=== PATIENT | male | born 1970 | race African-American/Black ===

== ENCOUNTER 2019-10-07 08:05 | Day surgery (SDC) | payer OTHER ==
[2019-10-07] MEDS ORDERED: Ringers Lactate 1,000 ML IV ONE (08:27)
[2019-10-07] MEDS ORDERED: CEFOXITIN/SWI 1gm 1 GM/10 ML SYR ONE (08:28)
[2019-10-07] MEDS ORDERED: PROPOFOL 200 MG/20 ML VIAL IV ONE (09:20)
[2019-10-07] MEDS ORDERED: FENTANYL CITR 100 MCG/2 ML ONE (09:20)
[2019-10-07] MEDS ORDERED: MIDAZOLAM HCL 2 MG/2 ML INJ ONE (09:21)
[2019-10-07] MEDS ORDERED: LIDOCAINE 1% MPF 5 ML VIAL ONE (09:21)
[2019-10-07] MEDS: BUPIVACA 0.5%/EPI 0.0005%/PF 30 ML VIAL ONE ×2 (11:02→12:18)
[2019-10-07] MEDS ORDERED: KETOROLAC 30 MG/ML INJ ONE (12:24)
[2019-10-07] MEDS ORDERED: ONDANSETRON 4 MG/2 ML VIAL ONE (12:26)
--- NOTE | 2019-10-07 12:37 | P.OP ---
Preoperative diagnosis: Posterior Neck Lipoma Postoperative diagnosis: Posterior Neck Lipoma Primary procedure: Excision of Posterior Neck Lipoma Anesthesia: GETA + Local Estimated blood loss: <2cc Specimen: Lipoma Findings: 8cm x 7cm lipoma Complications: None Transferred to: Recovery Room Condition: Good
[2019-10-07 13:48] VITALS: TEMP 97.6
[2019-10-07 14:25] VITALS: BP 138/94; O2SAT 97
--- NOTE | 2019-10-07 23:35 | OP ---
Date of Procedure: 10/07/2019 Surgeon: Eliazar Reed MD, Postoperative Diagnosis: Posterior neck lipoma. Postoperative Diagnosis: Posterior neck lipoma. Procedure Performed: Excision of posterior neck lipoma. Anesthesia: General endotracheal plus local with 0.5% Marcaine with epinephrine. Estimated Blood Loss: Less than 2 mL. Specimen: Lipoma. Findings: An 8 cm x 7 cm lipoma extending to the fascia overlying the muscle, but not invading muscl e. Complications: None. Disposition: Transferred to the recovery room in good condition. Procedure In Detail: After informed consent was obtained, patient was brought to the operating room, prepped and draped in the usual sterile fashion after adequate anesthesia was achieved, a linear inc ision was made overlying the upper neck area. This was made for approximately 8 cm in a transverse d irection. After appropriately anesthetizing the skin, electrocautery was used to dissect down throug h subcutaneous tissues and expose a lipomatous mass, which was encountered. This was approximately 8 cm x 7 cm. This was circumferentially dissected using electrocautery, extended all the way down to the muscle fascial plane, but did not violate the muscle plane and was only loosely attached to the f ascia and easily removable. After the mass was removed, marking sutures were placed and the specimen was sent off for pathologic examination. The area was copiously irrigated and hemostasis was easily achieved with electrocautery. Deep dermal layer was then closed with a 3-0 Vicryl in a running fash ion and the skin was closed with a 4-0 Monocryl in a running fashion. Dermabond was placed over top. The patient tolerated the procedure well without evidence of complication and was transferred to [facility] PACU in good condition. All counts were correct at the end of the case. LUZMA/MODL Voice ID: [id number] Report ID: [id number]
== END 2019-10-07 14:21 | disposition home or self-care (01) ==
LOC: OR 08:05
PROVIDERS: ATTEND Surgery
PROC: 0JB40ZZ Excision of Right Neck Subcutaneous Tissue and Fascia, Open Approach (ICD-10-PCS; principal; 2019-10-07 11:45)
DX: D17.0 Benign lipomatous neoplasm of skin and subcutaneous tissue of head, face and neck (principal)
CPT/HCPCS: 88304; 11426; J2704; J2250; J3010; J7120; J2405

== ENCOUNTER 2020-11-27 03:09 | Observation (INO) | payer OTHER ==
[2020-11-27 03:47] LABS: Absolute Lymphocytes (CBC) 1.8 K/uL (0.7-4.9); Basophils % 0.3 % (0-1.3); Hematocrit 39.2 % (39.6-49.0); Lymphocytes % 32.7 % (15.3-44.8); MPV 8.8 fL (7.6-11.3); RBC Red Blood Cell Count 4.72 M/uL (4.33-5.43)
[2020-11-27] MEDS ORDERED: MORPHINE 4 MG/ML SYR ONE ×2 (03:52→04:55)
[2020-11-27] MEDS ORDERED: ONDANSETRON 4 MG/2 ML VIAL ONE (03:52)
[2020-11-27 04:07] LABS: ALT/SGPT 24 U/L (12-78); AST/SGOT 21 U/L (15-37); Albumin 3.4 g/dL (3.4-5.0); Alkaline Phosphatase 68 U/L (45-117); BUN Blood Urea Nitrogen 13 mg/dL (7-18); Bicarbonate 26 mmol/L (21-32); Bilirubin Direct < 0.1 mg/dL (0-0.2); Bilirubin Total 0.8 mg/dL (0.2-1.0); Glucose Level 101 mg/dL (74-106); NT PRO-BNP 16 pg/mL (<125); Potassium 3.6 mmol/L (3.5-5.1); Protein, Total 7.2 g/dL (6.4-8.2); Sodium Level 139 mmol/L (136-145); Troponin (Emerg Dept Use Only) < 0.02 ng/mL (0.0-0.045)
--- NOTE | 2020-11-27 05:26 | P.HP ---
Certification for Inpatient Patient admitted to: Observation With expected LOS: <2 Midnights Patient will require the following post-hospital care: None Practitioner: I am a practitioner with admitting privileges, knowledge of patient current condition, hospital course, and medical plan of care. Services: Services provided to patient in accordance with Admission requirements found in Title 42 Section 412.3 of the Code of Federal Regulations <Viet Lott - Last Filed: 11/27/20 05:24> Patient History Date of Service: 11/27/20 Primary Care Provider: Dr. Coronado Reason for admission: Chest pain History of Present Illness: 50-year-old male with history of hypertension presented to the emergency department for chest pain. Patient reports that pain began yesterday at 9:00 a.m. while he was driving. Pain is substernal, radiates to back described as sharp. Made worse with deep breathing, patient does report some associated shortness of breath but this could be related to increased pain. Patient was evaluated in the emergency department with CT dissection protocol and cardiac workup. Labs unremarkable, EKG without acute changes. Chest x-ray unremarkable. Patient reportedly takes an unknown blood pressure medication intermittently and was hypertensive in the emergency department with blood pressures around 150/110. Patient was seen at [facility] yesterday and discharged for similar complaint but reports that pain came back and he grew concerned. ED provider wishes to admit patient for further evaluation and management. - Past Medical/Surgical History -: Hypertension -: Cyst removal on neck Psychosocial/ Personal History: Patient is currently unemployed and lives with his . - Family History Family History: Reviewed- Non-Contributory - Social History Smoking Status: Never smoker Alcohol use: Yes CD- Drugs: No Caffeine use: Yes Place of Residence: Home <OrenViet - Last Filed: 11/27/20 05:24> Date of Service: 11/27/20 <Phuc Sherman - Last Filed: 11/27/20 21:59> Allergies No Known Allergies Allergy (Verified 10/07/19 08:03) Home Medications: Furosemide [Lasix] 20 mg PO DAILY 30 Days #30 tablet 11/27/20 Losartan Potassium 50 mg PO DAILY 30 Days #30 tablet 11/27/20 carvediloL [Coreg] 3.125 mg PO BID 30 Days #60 tab 11/27/20 Review of Systems 10-point ROS is otherwise unremarkable Respiratory: Shortness of Breath, Pleuritic Pain Cardiovascular: Chest Pain <Viet Lott - Last Filed: 11/27/20 05:24> Physical Examination - Physical Exam General: Alert, In no apparent distress HEENT: Atraumatic, PERRLA, Mucous membr. moist/pink, EOMI, Sclerae nonicteric Neck: Supple, 2+ carotid pulse no bruit, No LAD, Without JVD or thyroid abnormality Respiratory: Clear to auscultation bilaterally, Normal air movement Cardiovascular: Regular rate/rhythm, Normal S1 S2 Gastrointestinal: Normal bowel sounds, No tenderness Musculoskeletal: No tenderness Integumentary: No rashes Neurological: Normal gait, Normal speech, Normal strength at 5/5 x4 extr, Normal tone, Normal affect Lymphatics: No axilla or inguinal lymphadenopathy - Studies Laboratory Data (last 24 hrs) 11/27/20 03:20: WBC 5.6, Hgb 13.0 L, Hct 39.2 L, Plt Count 208 11/27/20 03:20: Sodium 139, Potassium 3.6, BUN 13, Creatinine 1.00, Glucose 101, Total Bilirubin 0.8, AST 21, ALT 24, Alkaline Phosphatase 68 <Viet Lott - Last Filed: 11/27/20 05:24> - Studies Laboratory Data (last 24 hrs) 11/27/20 03:20: WBC 5.6, Hgb 13.0 L, Hct 39.2 L, Plt Count 208 11/27/20 03:20: Sodium 139, Potassium 3.6, BUN 13, Creatinine 1.00, Glucose 101, Total Bilirubin 0.8, AST 21, ALT 24, Alkaline Phosphatase 68 11/27/20 03:13: WBC Cancelled, Hgb Cancelled, Hct Cancelled, Plt Count Cancelled 11/27/20 03:13: Sodium Cancelled, Potassium Cancelled, BUN Cancelled, Creatinine Cancelled, Glucose Cancelled, Total Bilirubin Cancelled, AST Cancelled, ALT Cancelled, Alkaline Phosphatase Cancelled <Phuc Sherman - Last Filed: 11/27/20 21:59> Assessment and Plan - Plan Assessment Chest pain rule out ACS Hypertension Plan Chest pain rule out ACS: Trend troponins, CT dissection protocol negative for acute findings. Cardiology consult in place. Continue with aspirin, statin. Obtain lipid panel with next troponin. Hypertension: Obtain and continue home medications, adjust as necessary. Discharge Plan: Home Plan to discharge in: 24 Hours - Advance Directives Does patient have a Living Will: No Does patient have a Durable POA for Healthcare: No - Code Status/Comfort Care Code Status Assessed: Yes (Full code) Critical Care: No Time Spent Managing Pts Care (In Minutes): 55 <Viet Lott - Last Filed: 11/27/20 05:24> - Plan Plan of care reviewed and I agree with plan as noted above by Viet Lott. Trend troponin. Cardiology consulted. Pt reports family member had heart attack as teenager. <Phuc Sherman - Last Filed: 11/27/20 21:59>
--- NOTE | 2020-11-27 05:28 | ER ---
Nurse's Notes [facility] Name: Laci Dow Age: 50 yrs Sex: Male : 1970 Arrival Date: 11/27/2020 Time: 03:12 Bed 6 Private MD: Diagnosis: Chest pain, unspecified Presentation: 11/27 03:05 Chief complaint: EMS states: Pt reports having chest pain since yesterday that he was jb4 seen at [facility]. Since then it has been progressively getting worse. Initial blood pressure was 200/120. Current blood pressure is 155/90. Heart rate has stayed between 90-100. He took 162 oh his own aspirin, we gave another 162 for a total of 324. He was given 1 sublingual nitro tablet which brought his pain from a 10 to a 3. 03:05 Coronavirus screen: Client denies travel out of the [place] in the last 14 days. At this 4 time, the client does not indicate any symptoms associated with coronavirus-19. The client reports previous COVID testing was negative. Date of collection: November 26, 2020. Ebola Screen: Patient negative for fever greater than or equal to 101.5 degrees Fahrenheit, and additional compatible Ebola Virus Disease symptoms No symptoms or risks identified at this time. Initial Sepsis Screen: Does the patient meet any 2 criteria? HR > 90 bpm. Yes Does the patient have a suspected source of infection? No. Patient's initial sepsis screen is negative. Risk Assessment: Do you want to hurt yourself or someone else? Patient reports no desire to harm self or others. Onset of symptoms was November 26, 2020. Care prior to arrival: Medication(s) given: ASA, 81 mg, x 2, Nitroglycerin, 0.4 mg SL x 1, IV initiated. 20 GA, in the left antecubital area. Transition of care: patient was not received from another setting of care. 03:05 Method Of Arrival: EMS: [facility] jb4 03:05 Acuity: FARRAH 2 jb4 Historical: - Allergies: 03:05 No Known Allergies; jb4 - Home Meds: 03:05 Lisinopril Oral [Active]; aspirin 81 mg Oral chew [Active]; jb4 - PMHx: 03:05 Hypertension; jb4 - Immunization history:: Adult Immunizations up to date. - Social history:: Smoking status: Patient denies any tobacco usage or history of. Patient/guardian denies using alcohol, street drugs. - Family history:: not pertinent. - Hospitalizations: : No recent hospitalization is reported. Screenin:05 Abuse screen: Denies threats or abuse. Nutritional screening: No deficits noted. jb4 Tuberculosis screening: No symptoms or risk factors identified. Fall Risk None identified. Assessment: 03:05 General: Appears in no apparent distress. comfortable, Behavior is calm, cooperative, jb4 appropriate for age. Pain: Complains of pain in mid-sternal area Pain radiates to back Pain currently is 3 out of 10 on a pain scale. at worst was 10 out of 10 on a pain scale. Quality of pain is described as stabbing, tight Pain began 1 day ago. Is continuous. Neuro: Level of Consciousness is awake, alert, obeys commands, Oriented to person, place, time, situation. Cardiovascular: Heart tones S1 S2 present Patient's skin is warm and dry. Pulses are 3+ in right radial artery and left radial artery. Respiratory: Airway is compromised Respiratory effort is even, unlabored, Respiratory pattern is regular, symmetrical, Breath sounds are clear bilaterally. GI: No signs and/or symptoms were reported involving the gastrointestinal system. : No signs and/or symptoms were reported regarding the genitourinary system. EENT: No signs and/or symptoms were reported regarding the EENT system. Derm: Skin is intact, Skin is pink, warm \T\ dry. Musculoskeletal: Circulation, motion, and sensation intact. Range of motion: intact in all extremities. 04:04 Reassessment: Patient appears in no apparent distress at this time. Patient and/or jb4 family updated on plan of care and expected duration. Pain level reassessed. PT is resting in bed with eyes closed, respirations even and unlabored, no s/s of pain or distress noted. Patient states symptoms have improved. 04:30 Reassessment: Pt back from CT reports sudden onset worsening of chest pain, provider luis notified, see MAR for orders. 05:00 Reassessment: Patient appears in no apparent distress at this time. Patient and/or jb4 family updated on plan of care and expected duration. Pain level reassessed. Patient is alert, oriented x 3, equal unlabored respirations, skin warm/dry/pink. Patient states feeling better. 06:00 Reassessment: Patient appears in no apparent distress at this time. Patient and/or jb4 family updated on plan of care and expected duration. Pain level reassessed. Patient is alert, oriented x 3, equal unlabored respirations, skin warm/dry/pink. Vital Signs: 03:05 BP 143 / 103; Pulse 99; Resp 16; Temp 98.2; Pulse Ox 98% on R/A; Weight 115.67 kg (R); jb4 Height 5 ft. 7 in. (170.18 cm) (R); Pain 3/10; 04:00 BP 140 / 102; Pulse 86; Resp 15; Pulse Ox 100% on R/A; Pain 0/10; jb4 05:00 BP 145 / 102; Pulse 88; Resp 13; Pulse Ox 94% on R/A; jb4 05:45 BP 138 / 96; Pulse 81; Resp 15; Pulse Ox 96% on R/A; Pain 1/10; jb4 03:05 Body Mass Index 39.94 (115.67 kg, 170.18 cm) jb4 ED Course: 03:05 Arm band placed on left wrist. EKG completed in triage. Results shown to MD. EKG jb4 completed in triage. Results shown to MD. 03:05 Patient has correct armband on for positive identification. Bed in low position. Call jb4 light in reach. Side rails up X 1. monitor car operator on. Pulse ox on. NIBP on. 03:12 Patient arrived in ED. rn 03:15 Truong Roger, RN is Primary Nurse. jb4 03:20 Andreas Sherman MD is Attending Physician. rn 03:20 Initial lab(s) drawn, by ED staff, sent to lab. Maintain EMS IV. Dressing intact. Good jb4 blood return noted. Site clean \T\ dry. Gauge \T\ site: 20g LAC. IV is patent, is intact, with fluids infusing freely, with good blood return, Flushed left antecubital Converted IV to saline lock on left antecubital area. 03:21 Triage completed. jb4 03:36 Chest Single View In Process Unspecified. EDMS 04:36 Angio Aorta For Dissection In Process Unspecified. EDMS 04:39 EKG done, by ED staff, reviewed by Andreas Sherman MD. jb4 05:27 Phuc Sherman MD is Hospitalizing Provider. rn 06:00 No provider procedures requiring assistance completed. Patient admitted, IV remains in jb4 place. Administered Medications: 03:44 Drug: Zofran (Ondansetron) 4 mg Route: IVP; Site: left antecubital; jb4 04:10 Follow up: Response: No adverse reaction jb4 03:46 Drug: morphine 4 mg Route: IVP; Site: left antecubital; jb4 04:10 Follow up: Response: No adverse reaction; Pain is decreased; RASS: Alert and Calm (0) jb4 04:44 Drug: morphine 4 mg Route: IVP; Site: left antecubital; jb4 05:00 Follow up: Response: No adverse reaction; Pain is decreased; RASS: Alert and Calm (0) jb4 05:26 Not Given (administered by EMS): Aspirin Chewable Tablet 324 mg PO once; 81 mg tablets jb4 x 4 05:34 Drug: Metoprolol TARTRATE (Lopressor) 50 mg Route: PO; jb4 06:17 Follow up: Response: No adverse reaction jb4 Outcome: 05:28 Decision to Hospitalize by Provider. rn 06:00 Admitted to Med/surg accompanied by nurse, via stretcher, room 211, with chart, Report jb4 called to RADHIKA Juarez 06:00 Condition: stable 06:00 Discharge instructions given to patient, family, Instructed on the need for admit, Demonstrated understanding of instructions. 06:17 Patient left the ED. jb4 Signatures: Dispatcher [employer] EDMS Andreas Sherman MD MD rn Bryson, James, RN RN jb4 Corrections: (The following items were deleted from the chart) 03:21 03:05 Chief complaint: EMS states: Pt reports having chest pain since yesterday that he luis was seen at [facility] for. Since then it has been progressively getting worse. Initial blood pressure was 200/120. Current blood pressure is 155/90. Heart rate has stayed between 90-100. He took 182 oh his own aspirin, we gave another 182 for a total of 324. He was given 1 sublingual nitro tablet which brought his pain from a 10 to a 3. jb4 03:21 03:05 Care prior to arrival: Medication(s) given: ASA, 81 mg, x 2, IV initiated. 20 GA, jb4 in the left antecubital area, jb4 05:28 03:05 Chief complaint: EMS states: Pt reports having chest pain since yesterday that he luis was seen at [facility] for. Since then it has been progressively getting worse. Initial blood pressure was 200/120. Current blood pressure is 155/90. Heart rate has stayed between 90-100. He took 182 oh his own aspirin, we gave another 182 for a total of 324. He was given 1 sublingual nitro tablet which brought his pain from a 10 to a 3. jb4 06:17 06:00 Response: No adverse reaction; Pain is decreased; RASS: Alert and Calm (0) jb4 jb4
--- NOTE | 2020-11-27 05:28 | EDPHYS ---
Physician Documentation [facility] Name: Laci Dow Age: 50 yrs Sex: Male : 1970 Arrival Date: 11/27/2020 Time: 03:12 Bed 6 Private MD: ED Physician Andreas Sherman HPI: 11/27 03:15 This 50 yrs old Black Male presents to ER via Unassigned with complaints of chest pain. rn 03:15 The patient or guardian reports chest pain that is located primarily in the substernal rn area. Onset: just prior to arrival. The pain radiates to Associated signs and symptoms: Pertinent positives: None. Pertinent negatives: abdominal pain, cough, diaphoresis, headache, near syncope, palpitations, shortness of breath, syncope, vomiting. The chest pain is described as a heaviness. Duration: The patient or guardian reports a single episode, that is still ongoing. Modifying factors: The symptoms are alleviated by NTG, X1. the symptoms are aggravated by nothing. Severity of pain: At its worst the pain was moderate in the emergency department the pain has improved. EMS care prior to arrival includes: nitroglycerin, x 1, with partial relief of the chest pain. The patient has experienced a previous episode. The patient has been recently seen by a physician:. Reports chest pain began yesterday, seen at [place], reports given medication and went away, sent home. Went to bed fine and woken up with chest pain, heaviness, center of chest and some back pain, EMS reports pain from 10/10 to 3/10 after single nitroglycerin. . Historical: - Allergies: 03:05 No Known Allergies; jb4 - Home Meds: 03:05 Lisinopril Oral [Active]; aspirin 81 mg Oral chew [Active]; jb4 - PMHx: 03:05 Hypertension; jb4 - Immunization history:: Adult Immunizations up to date. - Social history:: Smoking status: Patient denies any tobacco usage or history of. Patient/guardian denies using alcohol, street drugs. - Family history:: not pertinent. - Hospitalizations: : No recent hospitalization is reported. ROS: 03:20 Constitutional: Negative for fever, chills, and weight loss, Eyes: Negative for injury, rn pain, redness, and discharge, Neck: Negative for injury, pain, and swelling, Cardiovascular: Negative for palpitations, and edema, Respiratory: Negative for shortness of breath, cough, wheezing, and pleuritic chest pain, Abdomen/GI: Negative for abdominal pain, nausea, vomiting, diarrhea, and constipation, Back: Negative for injury MS/Extremity: Negative for injury and deformity, Skin: Negative for injury, rash, and discoloration, Neuro: Negative for headache, weakness, numbness, tingling, and seizure. Exam: 03:20 Constitutional: This is a well developed, well nourished patient who is awake, alert, rn and in no acute distress. Head/Face: Normocephalic, atraumatic. Cardiovascular: Regular rate and rhythm. No pulse deficits. Respiratory: No increased work of breathing, no retractions or nasal flaring. Abdomen/GI: Soft, non-tender Skin: Warm, dry MS/ Extremity: Pulses equal, no cyanosis. Neurovascular intact. Full, normal range of motion. Equal circumference. Neuro: Awake and alert, GCS 15, oriented to person, place, time, and situation. Motor strength 5/5 in all extremities. Sensory grossly intact. Cerebellar exam normal. Vital Signs: 03:05 BP 143 / 103; Pulse 99; Resp 16; Temp 98.2; Pulse Ox 98% on R/A; Weight 115.67 kg (R); jb4 Height 5 ft. 7 in. (170.18 cm) (R); Pain 3/10; 04:00 BP 140 / 102; Pulse 86; Resp 15; Pulse Ox 100% on R/A; Pain 0/10; jb4 05:00 BP 145 / 102; Pulse 88; Resp 13; Pulse Ox 94% on R/A; jb4 05:45 BP 138 / 96; Pulse 81; Resp 15; Pulse Ox 96% on R/A; Pain 1/10; jb4 03:05 Body Mass Index 39.94 (115.67 kg, 170.18 cm) jb4 MDM: 03:20 Patient medically screened. rn 05:23 Differential diagnosis: abnormal EKG, acute myocardial infarction, acute pericarditis, rn anxiety, coronary artery disease costochondritis, esophagitis, gastroesophageal reflux disease (GERD), pleurisy, pneumonia, pneumothorax, stable angina, thoracic aortic disection, unstable angina. The patient was not given aspirin in the Emergency Department. Administered by EMS. Data reviewed: vital signs, nurses notes, lab test result(s), EKG, radiologic studies, CT scan, plain films, and as a result, I will admit patient. Counseling: I had a detailed discussion with the patient and/or guardian regarding: the historical points, exam findings, and any diagnostic results supporting the discharge/admit diagnosis, lab results, radiology results, the need for further work-up and treatment in the hospital. Response to treatment: the patient's symptoms have markedly improved after treatment, and as a result, I will admit patient. Admission orders: after a detailed discussion of the patient's condition and case, the admit orders are written by me. ED course: Pt improved is resting comfortably, CT aorta neg, trop normal, no ischemic changes on ECG, will obs for chest pain workup. Pt with appt with Dr. Medellin tomorrow, but not comfortable going home given is their 2nd time to ER for chest pain in 24 hours. Chest pain improved with Nitro. Will admit to Dr. Sherman. . 11/27 03:13 Order name: Basic Metabolic Panel rn 11/27 03:13 Order name: CBC with Diff rn 11/27 03:13 Order name: LFT's rn 11/27 03:13 Order name: NT PRO-BNP rn 11/27 03:13 Order name: Troponin (emerg Dept Use Only) rn 11/27 03:34 Order name: Basic Metabolic Panel; Complete Time: 04:14 EDMS 11/27 03:13 Order name: XRAY Chest (1 view) rn 11/27 03:14 Order name: CT Aorta for Dissection rn 11/27 03:22 Order name: Chest Single View EDMS 11/27 03:34 Order name: Liver (Hepatic) Function; Complete Time: 04:14 EDMS 11/27 03:34 Order name: Troponin (Emerg Dept Use Only); Complete Time: 04:14 EDMS 11/27 03:34 Order name: NT PRO-BNP; Complete Time: 04:14 EDMS 11/27 03:35 Order name: CBC with Automated Diff; Complete Time: 04:04 EDMS 11/27 05:38 Order name: COVID-19 la1 11/27 03:13 Order name: EKG; Complete Time: 06:32 rn 11/27 03:13 Order name: Cardiac monitoring; Complete Time: 03:21 rn 11/27 03:13 Order name: EKG - Nurse/Tech; Complete Time: 03:21 rn 11/27 03:13 Order name: IV Saline Lock; Complete Time: 03:21 rn 11/27 03:13 Order name: Labs collected and sent; Complete Time: 03:21 rn 11/27 03:13 Order name: O2 Per Protocol; Complete Time: 03:21 rn 11/27 03:13 Order name: O2 Sat Monitoring; Complete Time: 03:23 rn 11/27 03:43 Order name: Angio Aorta For Dissection EDNC 11/27 05:13 Order name: EKG - Nurse/Tech; Complete Time: 05:13 jb4 Administered Medications: 03:44 Drug: Zofran (Ondansetron) 4 mg Route: IVP; Site: left antecubital; jb4 04:10 Follow up: Response: No adverse reaction jb4 03:46 Drug: morphine 4 mg Route: IVP; Site: left antecubital; jb4 04:10 Follow up: Response: No adverse reaction; Pain is decreased; RASS: Alert and Calm (0) jb4 04:44 Drug: morphine 4 mg Route: IVP; Site: left antecubital; jb4 05:00 Follow up: Response: No adverse reaction; Pain is decreased; RASS: Alert and Calm (0) jb4 05:26 Not Given (administered by EMS): Aspirin Chewable Tablet 324 mg PO once; 81 mg tablets jb4 x 4 05:34 Drug: Metoprolol TARTRATE (Lopressor) 50 mg Route: PO; jb4 06:17 Follow up: Response: No adverse reaction jb4 Disposition: 11/27/20 05:28 Hospitalization ordered by Phuc Sherman for Observation. Preliminary diagnosis is Chest pain, unspecified. - Bed requested for Telemetry/MedSurg (observation). - Status is Observation. jb4 - Condition is Stable. - Problem is new. - Symptoms have improved. Signatures: Dispatcher [employer] EDNC Lien Vogel RN Andreas Mclean MD MD rn Attema, Lee, LATHE TURNER-C LATHE TURNER-Cla1 Truong Roger RN RN jb4 Corrections: (The following items were deleted from the chart) 05:38 05:28 Hospitalization Ordered by Phuc Sherman MD for Observation. Preliminary mw diagnosis is Chest pain, unspecified. Bed requested for Telemetry/MedSurg (observation). Status is Observation. Condition is Stable. Problem is new. Symptoms have improved. rn 06:17 05:38 11/27/2020 05:28 Hospitalization Ordered by Phuc Sherman MD for Observation. jb4 Preliminary diagnosis is Chest pain, unspecified. Bed requested for Telemetry/MedSurg (observation). Status is Observation. Condition is Stable. Problem is new. Symptoms have improved. mw
[2020-11-27] MEDS ORDERED: METOPROLOL TAR 50 MG TAB ONE (05:47)
[2020-11-27] MEDS ORDERED: MORPHINE 2 MG/ML SYR IV PRN (06:12)
[2020-11-27] MEDS ORDERED: ACETAMINOPHEN 500 MG TAB PO PRN (06:12)
[2020-11-27] MEDS ORDERED: NITROGLYCERIN 0.4 MG/TAB SL PRN (06:12)
[2020-11-27] MEDS ORDERED: ONDANSETRON 4 MG/2 ML VIAL IV PRN (06:12)
[2020-11-27] MEDS: METOPROLOL TAR 25 MG TAB PO SCH ×2 (06:12→17:55)
[2020-11-27 06:16] VITALS: BMI 41.1
[2020-11-27 06:24] VITALS: O2SAT 96
--- NOTE | 2020-11-27 06:53 | RAD REPORT ---
EXAM DESCRIPTION: Vasiliy Single View11/27/2020 3:36 am CLINICAL HISTORY: Chest pain COMPARISON: none FINDINGS: The lungs appear clear of acute infiltrate. The heart is mildly enlarged IMPRESSION: No acute abnormalities displayed
[2020-11-27] MEDS ORDERED: POTASSIUM CL SA 10 MEQ TAB PO ONE (08:00)
[2020-11-27] MEDS ORDERED: REGADENOSON 0.4 MG/5 ML SYR IV ONE (08:46)
[2020-11-27] MEDS ORDERED: ENOXAPARIN 40 MG/0.4 ML SQ SCH (09:00)
[2020-11-27 09:44] LABS: HDL Cholesterol 66 mg/dL (40-60); LDL Cholesterol, Calculated 118 (<130); Troponin I < 0.02 ng/mL (0.0-0.045)
--- NOTE | 2020-11-27 12:50 | RAD REPORT ---
EXAM DESCRIPTION: NM - Rest Stress Cardiac Imaging - 11/27/2020 12:39 pm CLINICAL HISTORY: Chest pain COMPARISON: Portable chest November 27, 2020 TECHNIQUE: The patient was administered 10.2 mCi of Tc 99m Sestamibi prior to resting SPECT imaging of the heart. The patient was then administered 30.9 mCi of Tc 99m Sestamibi following exercise or ph armacologic stress. Multiplanar SPECT images were reviewed. FINDINGS: The end diastolic volume is 150 ml, the end systolic volume is 103 ml, and the ejection fr action is 32 %. Ventricular dilatation is present. There is a large fixed defect along the inferior wall from base to apex unchanged between rest and stress imaging. In the setting of ventricular dilatation this can be scarring or diaphragm attenuation artifact. There is thinning at the apex. No stress-induced ischemi c changes confirmed. IMPRESSION: No stress-induced ischemia identifiable. Large fixed defect along the inferior wall could be scarring, attenuation artifact or a combination. Dilated end-diastolic volume of 150 mL. Poor ejection fraction calculated as 32%.
--- NOTE | 2020-11-27 14:57 | RAD REPORT ---
EXAM DESCRIPTION: CT - Angio Aorta For Dissection - 11/27/2020 6:21 am CLINICAL HISTORY: CHEST PAIN COMPARISON: None Available. TECHNIQUE: CTA of the chest, abdomen and pelvis performed following IV administration of iodinated c ontrast. 3-D/MIP reformatted images available. FINDINGS: Chest: Thyroid: No abnormalities of the visualized thyroid. Great Vessels: Great vessels have normal anatomic configuration. Thoracic Aorta: Normal caliber thoracic aorta without evidence of dissection. Pulmonary arteries: No central filling defects. Heart: No cardiomegaly, significant pericardial effusion, or coronary artery atherosclerosis Lymph Nodes: No enlarged mediastinal lymph nodes identified. Esophagus: No abnormalities of the esophagus identified Other: No additional findings. Lungs: Mild bilateral dependent atelectasis. No confluent airspace consolidation. Small apical blebs. Pleura: No pleural effusion or pneumothorax. Trachea/Airways: No abnormalities of the visualized trachea or airways. Abdomen: Liver: The liver has normal size and density. No intrahepatic mass or biliary dilatation. Gallbladder: No calcified gallstones. Spleen, Pancreas, and Adrenal Glands: The spleen, pancreas, and adrenal glands are unremarkable. Kidneys: The kidneys have normal size and contour without evidence of solid mass or hydronephrosis. Vasculature: Normal caliber abdominal aorta without evidence of dissection. In line flow in the iliac and common femoral arteries. Visceral and renal arteries are patent without evidence of stenosis o r occlusion. Stomach: The stomach and duodenum have normal course. Other: No free intraperitoneal air. No free fluid or lymphadenopathy. Pelvis: Bladder: Urinary bladder is unremarkable. Bowel: No dilated loops of large or small bowel. Scattered diverticula of the colon. Appendix: Normal appendix. Pelvis: Prostate is not enlarged. Bones: Bilateral L5 pars defects with grade 1 anterolisthesis. Mild endplate spondylosis. Bilateral h ip joint space narrowing and marginal osteophytosis. IMPRESSION: 1. No evidence of aortic dissection. 2. No acute inflammatory or obstructive process identified. This exam was performed according to our departmental dose-optimization program, which includes autom ated exposure control, adjustment of the mA and/or kV according to patient size and/or use of iterati ve reconstruction technique. Electronically signed by: Reggie Toscano 11/27/2020 5:07 AM RISK ANALYST Due to temporary technical issues with the PACS/Fluency reporting system, reports are being signed by the in house radiologists without review as a courtesy to insure prompt reporting. The interpreting radiologist is fully responsible for the content of the report.
[2020-11-27 16:17] VITALS: BP 120/75; TEMP 97.9
[2020-11-27] MEDS ORDERED: ATORVASTATIN 40 MG TAB PO SCH (21:00)
--- NOTE | 2020-11-28 06:33 | EKG ---
Test Date: 2020-11-27 Test Time: 04:34:39 Library [employer] Assistant: LUIS MEASUREMENT RESULTS: Intervals: Rate: 94 CO: 168 QRSD: 94 QT: 384 QTc: 480 [place]: P: 46 CO: 168 QRS: -6 T: 42 INTERPRETIVE STATEMENTS: Normal sinus rhythm Junctional ST depression, probably normal Prolonged QT Abnormal ECG Compared to ECG 11/27/2020 03:08:08 ST (T wave) deviation now present Prolonged QT interval now present Electronically Signed On 11-28-20 06:31:55 [employer] by Abiel Medellin
--- NOTE | 2020-11-28 06:34 | EKG ---
Test Date: 2020-11-27 Test Time: 03:08:08 Line Director: RV MEASUREMENT RESULTS: Intervals: Rate: 93 [place]: 168 QRSD: 90 QT: 382 QTc: 474 [place]: P: 66 [place]: 168 QRS: -22 T: 39 INTERPRETIVE STATEMENTS: Normal sinus rhythm Normal ECG Compared to ECG 08/27/2003 05:05:00 Sinus arrhythmia no longer present Electronically Signed On 11-28-20 06:31:58 [employer] by Abiel Medellin
--- NOTE | 2020-11-28 08:42 | ECHO ---
HEIGHT: 5 ft 7 in WEIGHT: 262 lb 6.4 oz DATE OF STUDY: 11/27/[address]: Abiel Medellin MD 2-DIMENSIONAL: YES M.MODE: YES DOPPLER: YES COLOR FLOW: YES TDS: NO PORTABLE: NO DEFINITY: NO BUBBLE STUDY: NO DIAGNOSIS: CHEST PAIN CARDIAC HISTORY: CATHERIZATION: NO SURGERY: NO PROSTHETIC VALVE: NO PACEMAKER: NO MEASUREMENTS (cm) DIASTOLIC (NORMALS) SYSTOLIC (NORMALS) IVSd 1.2 (0.6-1.2) LA Diam 3.3 (1.9-4.0) LVEF 48% LVIDd 4.8 (3.5-5.7) LVIDs 3.6 (2.0-3.5) %FS 24% LVPWd 1.2 (0.6-1.2) Ao Diam 3.4 (2.0-3.7) 2 DIMENSIONAL ASSESSMENT: RIGHT ATRIUM: NORMAL LEFT ATRIUM: NORMAL RIGHT VENTRICLE: NORMAL LEFT VENTRICLE: NORMAL TRICUSPID VALVE: NORMAL MITRAL VALVE: NORMAL PULMONIC VALVE: NORMAL AORTIC VALVE: NORMAL PERICARDIAL EFFUSION: NONE AORTIC ROOT: NORMAL LEFT VENTRICULAR WALL MOTION: PARADOXICAL SEPTUM. DOPPLER/COLOR FLOW: NORMAL COMMENTS: PARADOXICAL SEPTUM. LEFT VENTRICULAR EJECTION FRACTION 48%. MILD GLOBAL HYPOKINESIS. NO EFFUSION. NORMAL DOPPLER. TECHNOLOGIST: Jean-Paul YIN
--- NOTE | 2020-11-28 08:47 | TREADPHA ---
DX: CHEST PAIN Date of Study: 11/27/2020 Ht: 5' 7 " Wt: 262 lb 6.4 oz Consulting Physician: MELISSA MEDICATIONS: TYLENOL, ASPIRIN, LIPTIOR, LOVENOX, LOPRESSOR, NITROSTAT HISTORY: HYPERTENSION AND HYPERLIPIDEMIA. PHYSICIAL EXAMINATION: RESTING B.P.: 111/41 RESTING H.R.: 75 RESTING EKG: NORMAL PROTOCOL: LEXISCAN EXERCISE TIME: 3:30 B.P. AT PEAK STRESS: 158/80 IMPRESSION: LEXISCAN INJECTED. CARDIOLITE INJECTED. SEE NUCLEAR MEDICINE REPORT. NO CHEST PAIN. NO VENTRICULAR TACHYCARDIA. NO SUPRAVENTRICULAR TACHYCARDIA. NO PREMATURE VENTRICULAR COMPLEXES. NO ARRYTHMIAS NOTED.
[2020-11-28] MEDS ORDERED: ASPIRIN EC 81 MG TAB PO SCH (09:00)
--- NOTE | 2020-11-29 20:39 | CON ---
Date of Consultation: 11/27/2020 Reason For Consultation: Chest pain. History Of Present Illness: Mr. Dow is a 50-year-old black male with history of hypertension for w hich he takes lisinopril. He is also on aspirin. He came in with substernal chest pain that is radi ating to the back. He denied any shortness of breath, palpitation, syncope, vomiting or nausea. The pain was described as heaviness. He has had 1 episode. The symptoms were alleviated with nitroglyc naomi. He denied PND, orthopnea, pedal edema, palpitation, or syncope. He had been seen at [facility], but his symptoms improved and then returned and he came back for further evaluation and treatmen t. Past Medical History: As stated above. Allergies: NONE. Review of Systems: Negative. Social History: Negative. Family History: Positive for heart disease. Physical Examination: Vital Signs: His blood pressure was 143/103, his pulse was 99, respiratory rate was 16. He was afeb rile, O2 saturation was 98% on room air. He weighed 115 kg. HEENT: Negative. Neck: Supple without any bruit, lymphadenopathy, JVD, or thyromegaly. Chest: Clear to auscultation and percussion. Cardiac: Exam revealed a regular rhythm and rate with an S4 gallops. No murmurs or rubs. Abdomen: Benign. Extremities: Revealed no clubbing, cyanosis, or edema. Diagnostic Data: Within normal limits except for his cholesterol of 203. His troponin was negative. His BNP was 16. EKG showed normal rhythm with slightly prolonged QT. Chest x-ray was normal. CT with dissection protocol was normal. Impression And Plan: Chest pain that is concerning since it got relieved with nitroglycerin, but it lasted hours with substernal chest pain radiating to the back, but yet despite the prolonged chest pa in, he still had a normal EKG, normal x-ray, normal BNP, normal troponin. His GA has officially rule d out. I am still concerned about Mr. Dow as he does have hypertension. He has a family history o f heart disease, thus I strongly recommend an echocardiogram and a pharmacological stress test before he goes home. HARRISON/AJ Voice ID: [id number] Report ID: [id number]
== END 2020-11-27 18:24 | disposition home or self-care (01) ==
LOC: ER 03:09 → 2ND 05:55
PROVIDERS: ADMIT Hospitalist; ATTEND Hospitalist
DX: R07.9 Chest pain, unspecified (principal); I10 Essential (primary) hypertension; Z82.49 Family history of ischemic heart disease and other diseases of the circulatory system; Z20.822 Contact with and (suspected) exposure to COVID-19
CPT/HCPCS: 93005 ×2; 93017; 93306; 85025; 80048; 36415; 80061; 80076; 84443; 84484 ×3; 83880; 71275; 74175; 71045; 78452; 96375; 96374; 99285; Q9967; J1650; J2785; J2405; A9500; G0378 ×2

== ENCOUNTER 2021-08-19 19:10 | Emergency (ER) | payer OTHER ==
[2021-08-19 19:49] LABS: Absolute Lymphocytes (CBC) 2.3 K/uL (0.7-4.9); Basophils % 0.5 % (0-1.3); Hematocrit 41.9 % (39.6-49.0); Lymphocytes % 44.8 % (15.3-44.8); MPV 7.9 fL (7.6-11.3); RBC Red Blood Cell Count 4.96 M/uL (4.33-5.43)
[2021-08-19 20:09] LABS: ALT/SGPT 42 U/L (12-78); AST/SGOT 30 U/L (15-37); Alkaline Phosphatase 70 U/L (45-117); BUN Blood Urea Nitrogen 12 mg/dL (7-18); Bicarbonate 27 mmol/L (21-32); Bilirubin Direct 0.2 mg/dL (0-0.2); Bilirubin Total 0.6 mg/dL (0.2-1.0); Glucose Level 93 mg/dL (74-106); Lipase 153 U/L (73-393); Potassium 3.5 mmol/L (3.5-5.1); Protein, Total 7.9 g/dL (6.4-8.2); Sodium Level 143 mmol/L (136-145)
[2021-08-19] MEDS ORDERED: NA CHLORIDE 0.9% 1,000 ML ONE (20:10)
--- NOTE | 2021-08-19 21:11 | RAD REPORT ---
EXAM DESCRIPTION: CT - Stone Protocol - 08/19/2021 9:02 pm CLINICAL HISTORY: Flank pain. FLANK PAIN COMPARISON: No comparisons TECHNIQUE: Axial images were obtained without oral or IV contrast. Lack of contrast limits solid org an and vascular assessment. The xvyuk-rl-coys spans the entirety of the system partially obscuring uppermost abdomen and lung bases. Coronal reformatted images were obtained and reviewed. All CT scans are performed using dose optimization technique as appropriate and may include automated exposure control or mA/KV adjustment according to patient size. FINDINGS: The lower lung barger are clear. Imaged portions of the liver and spleen show no suspicious findings on non-contrast imaging. The panc reas and adrenal glands are normal. No pathologic lymphadenopathy in the abdomen or pelvis. No urinary tract stones or obstructive uropathy. No bowel obstruction, free air, free fluid or abscess. Normal appendix noted.Moderate stool is presen t throughout the colon. Chronic bilateral spondylolysis is present L5-S1. Vacuum disc degeneration with posterior disc bulge at L5-S1 is present as well. IMPRESSION: No urinary tract stones or obstructive uropathy.
[2021-08-19 21:15] LABS: Urine Blood Negative (Negative); Urine Glucose Negative (Negative); Urine Protein Negative (Negative); Urine Specific Gravity >=1.030 (1.005-1.030)
[2021-08-19 21:45] LABS: Urine Bacteria <20 /HPF (NONE SEEN); Urine Mucus HEAVY /HPF (NONE SEEN); Urine RBC NONE SEEN /HPF (NONE SEEN)
--- NOTE | 2021-08-19 21:55 | ER ---
Nurse's Notes [facility] Name: Laci Dow Age: 51 yrs Sex: Male : 1970 Arrival Date: 08/19/2021 Time: 19:12 Bed 9 Private MD: Greg Coronado E Diagnosis: Low back pain Presentation: 08/19 19:22 Chief complaint: Patient states: PT states he has had right flank and right upper and wg lower abd pain for the past 4 days. Pt states he thought it was his appendix but states today he thinks it might be kidney stones. Pt states he hasn't been seen for this nor diagnosed. Pt denies SPB, CP, N/V/D. Coronavirus screen: Vaccine status: Patient reports receiving the 2nd dose of the covid vaccine. Date April 2021 Client denies travel out of the [place] in the last 14 days. At this time, the client does not indicate any symptoms associated with coronavirus-19. Ebola Screen: Patient negative for fever greater than or equal to 101.5 degrees Fahrenheit, and additional compatible Ebola Virus Disease symptoms Patient denies exposure to infectious person. Patient denies travel to an Ebola-affected area in the 21 days before illness onset. No symptoms or risks identified at this time. Initial Sepsis Screen: Does the patient meet any 2 criteria? No. Patient's initial sepsis screen is negative. Does the patient have a suspected source of infection? No. Patient's initial sepsis screen is negative. Risk Assessment: Do you want to hurt yourself or someone else? Patient reports no desire to harm self or others. Onset of symptoms was August 15, 2021. 19:22 Method Of Arrival: Ambulatory 19:22 Acuity: FARRAH 3 Triage Assessment: 19:26 General: Appears in no apparent distress. obese, well groomed, Behavior is calm, wg cooperative, appropriate for age. Pain: Complains of pain in Right flank and Right upper and lower abdomen Pain currently is 8 out of 10 on a pain scale. Quality of pain is described as aching. Historical: - Allergies: 19:25 No Known Allergies; wg - Home Meds: 19:25 None [Active]; wg - PMHx: 19:25 None; wg - Immunization history:: Adult Immunizations up to date. - Social history:: Smoking status: Patient denies any tobacco usage or history of. Screenin:40 Abuse screen: Denies threats or abuse. Denies injuries from another. Nutritional sj1 screening: No deficits noted. Tuberculosis screening: No symptoms or risk factors identified. Fall Risk None identified. Assessment: 19:39 General: Appears in no apparent distress. Behavior is calm, cooperative, appropriate sj1 for age. Pain: Complains of pain in rt flank. Neuro: No deficits noted. Cardiovascular: No deficits noted. Respiratory: No deficits noted. GI: No deficits noted. : No deficits noted. EENT: No deficits noted. Derm: No deficits noted. Musculoskeletal: No deficits noted. Vital Signs: 19:22 BP 153 / 92; Pulse 66; Resp 18; Temp 98.8; Pulse Ox 99% on R/A; Weight 116.57 kg; wg Height 5 ft. 7 in. (170.18 cm); Pain 8/10; 22:16 BP 164 / 100; Pulse 67; Resp 16; Temp 98.8; Pulse Ox 99% on R/A; Pain 2/10; sj1 19:22 Body Mass Index 40.25 (116.57 kg, 170.18 cm) ED Course: 19:12 Patient arrived in ED. am2 19:12 Greg Coronado MD is Private Physician. am2 19:25 Triage completed. 19:26 Arm band placed on left wrist. 19:27 Ancelmo Kelly PA is PHCP. cp 19:27 Ning Wright MD is Attending Physician. cp 19:28 Attending Physician role handed off by Ning Wright MD [facility] 19:28 Ancelmo Lee MD is Attending Physician. [facility] 19:39 No provider procedures requiring assistance completed. Inserted saline lock: 18 gauge sj1 in right antecubital area, using aseptic technique. Blood collected. 19:40 Patient has correct armband on for positive identification. Bed in low position. Call sj1 light in reach. Side rails up X 1. 20:04 Ning Wright MD is Attending Physician. cp 20:56 CT Stone Protocol Sent. sj1 21:02 CT Stone Protocol In Process Unspecified. EDMS 21:54 Greg Coronado MD is Referral Physician. cp 22:16 IV discontinued, intact, bleeding controlled, No redness/swelling at site. sj1 Administered Medications: 19:48 Drug: NS 0.9% 1000 ml Route: IV; Rate: 1 bolus; Site: right antecubital; sj1 21:02 Follow up: IV Status: Completed infusion; IV Intake: 1000ml sj1 Intake: 21:02 IV: 1000ml; Total: 1000ml. sj1 Outcome: 21:54 Discharge ordered by . cp 22:16 Discharged to home sj1 22:16 Condition: stable 22:16 Discharge instructions given to patient, Instructed on discharge instructions, follow up and referral plans. medication usage, Demonstrated understanding of instructions, follow-up care, medications. 22:17 Patient left the ED. sj1 Signatures: Dispatcher [employer] EDMS Ancelmo Lee MD MD cha Page, Corey, PA Teresa Peralta cp, Liam, Tracy Roberto RN RN sj1
--- NOTE | 2021-08-19 21:55 | EDPHYS ---
Physician Documentation [facility] Name: Laci Dow Age: 51 yrs Sex: Male : 1970 Arrival Date: 08/19/2021 Time: 19:12 Bed 9 Private MD: Greg Coronado E ED Physician Ning Wright HPI: 08/19 19:35 This 51 yrs old Black Male presents to ER via Ambulatory with complaints of Flank Pain. cp 19:35 The patient complains of pain in the right flank. The pain does not radiate. Onset: The cp symptoms/episode began/occurred 1 week(s) ago. Modifying factors: The symptoms are alleviated by remaining still, the symptoms are aggravated by movement. Associated signs and symptoms: Pertinent negatives: diarrhea, dysuria, fever, urinary frequency, hematuria, pain radiating to the lower extremities, vomiting. Severity of pain: in the emergency department the pain is a 0 / 10. Historical: - Allergies: 19:25 No Known Allergies; wg - Home Meds: 19:25 None [Active]; wg - PMHx: 19:25 None; wg - Immunization history:: Adult Immunizations up to date. - Social history:: Smoking status: Patient denies any tobacco usage or history of. ROS: 19:40 Back: Positive for flank pain, on the right, Negative for injury or acute deformity, cp decreased range of motion. 19:40 Eyes: Negative for injury, pain, redness, and discharge. cp 19:40 Constitutional: Negative for body aches, chills, fever, poor PO intake. 19:40 Neck: Negative for pain with movement, pain at rest, stiffness. 19:40 Cardiovascular: Negative for chest pain, edema, palpitations. 19:40 Respiratory: Negative for cough, shortness of breath, wheezing. 19:40 Abdomen/GI: Negative for abdominal pain, vomiting, diarrhea, constipation, anorexia. 19:40 : Negative for urinary symptoms, testicular pain 19:40 Skin: Negative for rash. 19:40 Neuro: Negative for numbness, tingling, weakness. 19:40 All other systems are negative. Exam: 19:45 Constitutional: The patient appears in no acute distress, alert, awake, cp non-diaphoretic, non-toxic, well developed, well nourished, obese. 19:45 Head/Face: Normocephalic, atraumatic. cp 19:45 Eyes: Periorbital structures: appear normal, Conjunctiva: normal, no exudate, no injection, Sclera: no appreciated abnormality, Lids and lashes: appear normal, bilaterally. 19:45 ENT: External ear(s): are unremarkable, Nose: is normal, Posterior pharynx: Airway: no evidence of obstruction, patent. 19:45 Neck: ROM/movement: is normal, is supple, without pain, no range of motions limitations. 19:45 Chest/axilla: Inspection: normal. 19:45 Cardiovascular: Rate: normal, Rhythm: regular, Edema: is not appreciated, JVD: is not appreciated. 19:45 Respiratory: the patient does not display signs of respiratory distress, Respirations: normal, no use of accessory muscles, no retractions, labored breathing, is not present. 19:45 Abdomen/GI: Inspection: abdomen appears normal, Bowel sounds: active, all quadrants, Palpation: soft, in all quadrants, mild abdominal tenderness, in the anterior aspect of right lateral abdomen and posterior aspect of right lateral abdomen, rebound tenderness, is not appreciated, involuntary guarding, is not appreciated. 19:45 Back: pain, is absent. 19:45 Skin: cellulitis, is not appreciated, no rash present. Vital Signs: 19:22 BP 153 / 92; Pulse 66; Resp 18; Temp 98.8; Pulse Ox 99% on R/A; Weight 116.57 kg; wg Height 5 ft. 7 in. (170.18 cm); Pain 8/10; 22:16 BP 164 / 100; Pulse 67; Resp 16; Temp 98.8; Pulse Ox 99% on R/A; Pain 2/10; sj1 19:22 Body Mass Index 40.25 (116.57 kg, 170.18 cm) wg MDM: 19:28 Patient medically screened. cp 20:00 Differential diagnosis: nephrolithiasis, pyelonephritis, UTI, diverticulitis, cp pancreatitis. 21:53 Data reviewed: vital signs, nurses notes, lab test result(s), radiologic studies, CT cp scan, and as a result, I will discharge patient. 21:53 Counseling: I had a detailed discussion with the patient and/or guardian regarding: the cp historical points, exam findings, and any diagnostic results supporting the discharge/admit diagnosis, lab results, radiology results, to return to the emergency department if symptoms worsen or persist or if there are any questions or concerns that arise at home. Special discussion: Based on the patient's Hx, exam, and Dx evaluation, there is no indication for emergent surgery or inpatient Tx. It is understood by the patient/guardian that if the Sx's persist or worsen they need to return immediately for re-evaluation. 08/19 19:27 Order name: Basic Metabolic Panel; Complete Time: 20:40 08/19 20:40 Interpretation: Normal except: CL 109. 08/19 19:27 Order name: CBC with Diff; Complete Time: 20:09 08/19 20:09 Interpretation: Normal except: BRANDON% 41.1. 08/19 19: Order name: Hepatic Function; Complete Time: 20:40 08/19 20:40 Interpretation: Normal except: A/G 1.0; GLOB 3.9. 08/19 19:27 Order name: Lipase; Complete Time: 20:40 08/19 20:40 Interpretation: Within normal limits: LIP 153. 08/19 19:28 Order name: Urine Microscopic Only; Complete Time: 21:52 08/19 21:15 Order name: Urine Dipstick-Ancillary; Complete Time: 21:20 EDMS 08/19 21:21 Interpretation: Reviewed. 08/19 19:27 Order name: IV Saline Lock; Complete Time: 19:37 08/19 19:27 Order name: Labs collected and sent; Complete Time: 19:37 08/19 19:27 Order name: Urine Dipstick-Ancillary (obtain specimen); Complete Time: 21:18 08/19 20:10 Order name: CT Stone Protocol; Complete Time: 21:20 cp Administered Medications: 19:48 Drug: NS 0.9% 1000 ml Route: IV; Rate: 1 bolus; Site: right antecubital; sj1 21:02 Follow up: IV Status: Completed infusion; IV Intake: 1000ml [facility] Disposition Summary: 08/19/21 21:54 Discharge Ordered Location: Home cp Problem: new cp Symptoms: have improved cp Condition: Stable cp Diagnosis - Low back pain cp Followup: cp - With: Greg Coronado MD - When: 2 - 3 days - Reason: Recheck today's complaints Discharge Instructions: - Discharge Summary Sheet cp - Acute Back Pain, Adult cp - Back Exercises cp Forms: - Medication Reconciliation Form cp - Thank You Letter cp - Antibiotic Education cp - Prescription Opioid Use cp Prescriptions: - Lidoderm 5 % Topical adhesive patch,medicated - apply 1 patch by TOPICAL route once daily As needed; 1 box; Refills: 0, Product cp Selection Permitted - Cyclobenzaprine 10 mg Oral Tablet - take 1 tablet by ORAL route every 8 hours As needed; 20 tablet; Refills: 0, cp Product Selection Permitted - Diclofenac Sodium 75 mg Oral tablet,delayed release (DR/EC) - take 1 tablet by ORAL route 2 times per day; 20 tablet; Refills: 0, Product cp Selection Permitted Addendum: 08/23/2021 04:35 Co-signature as Attending Physician, Ning harmon a2 Signatures: Dispatcher [employer] Ancelmo Silverio PA PA cp Alzahri, Mohammad, MD MD ma2 Neftali Teague RN wg Johnson, Sade, RN RN sj1
[2021-08-20 08:38] VITALS: TEMP 98.8; O2SAT 99
[2021-08-20 08:40] VITALS: BP 164/100
== END 2021-08-19 22:17 | disposition home or self-care (01) ==
LOC: ER 19:10
DX: M54.5 Low back pain (principal)
CPT/HCPCS: 85025; 80048; 36415; 80076; 83690; 76377; 74176; 96360; 99284; J7030; 81003; 81015

== ENCOUNTER 2022-12-14 14:41 | Emergency (ER) | payer OTHER ==
--- OUTSIDE RECORDS SUMMARY | 2022-12-14 14:44 | XMS REPORT | Continuity of Care Document ---
:1970 Author Organization [facility] t Address [address] [place] [address] Care Team Providers Name Role Phone PCP, PATIENT DOES NOT HAVE A Primary Care Physician Unavailanthony Us MD, Joshua Ryan Attending Clinician Kelle Neves Attending Clinician KELLE DAWKINS Attending Clinician Unavailable Payers Payer Name Policy Type Policy Number Effective Date Expiration Date S ource Problems Condition Condition Condition Status Onset Resolution Last Treating Co mments Source Name Details Category Date Date Treatment Clinician Date No known No known Disease Unive rs active active ity of problems problems [facility] Allergies, Adverse Reactions, Alerts Allergy Allergy Status Severity Reaction(s) Onset Inactive Treating Comm ents Source Name Type Date Date Clinician NO KNOWN Drug Active Univers ALLERGIE Class ity of S [facility] Social History Social Habit Start Date Stop Date Quantity Comments Source Exposure to 2022-03-03 2022-03-13 Not sure [facility] SARS-CoV-2 (event) 00:00:00 10:55:00 Medica l Branch Tobacco use and 2022-03-13 2022-03-13 Never used [facility] exposure 00:00:00 00:00:00 Medical [place] Sex [birth year] [facility] 00:00:00 00:00:00 Medical Branch Smoking Status Start Date Stop Date Source Smoker, current status 2022-03-13 00:00:00 Unive rsity of [facility] Branch Medications Ordered Filled Start Stop Current Ordering Indication Dosage Frequency Signature Comments Components Source Medication Medication Date Date Medication? Clinician (SIG) Name Name MELOXICAM Yes [id number] TAKE 1 Un teodora 7.5 mg 5-16 TABLET BY ity of tablet 00:00: MOUTH [place] 00 EVERY DAY Medical Branch meloxicam Yes 7.5mg Take 1 Unive rs (MOBIC) 7.5 4-22 tablet by ity of mg tablet 00:00: mouth [place] 00 daily. Medical Branch meloxicam No 7.5mg Take 1 Univ ers (MOBIC) 7.5 4-22 05-16 tablet by it y of mg tablet 00:00: 00:00 mouth [place] 00 :00 daily. Medical Branch No known No Univers medications 4-21 ity of 11:11: [place] [address] Medical Branch No known No Univers medications 4-21 ity of 11:11: [address] Branch Immunizations Ordered Filled Immunization Date Status Comments [facility] e Immunization Name Name SARS-COV-2 COVID-19 2021-02-17 Completed Unive rsity of MODERNA VACCINE 00:00:00 [facility] Branch SARS-COV-2 COVID-19 2021-02-17 Completed Unive rsity of MODERNA VACCINE 00:00:00 [facility] Branch SARS-COV-2 COVID-19 2021-02-17 Completed Unive rsity of MODERNA VACCINE 00:00:00 [facility] Branch SARS-COV-2 COVID-19 2021-02-17 Completed Unive rsity of MODERNA VACCINE 00:00:00 [facility] Branch SARS-COV-2 COVID-19 2021-01-20 Completed Unive rsity of MODERNA VACCINE 00:00:00 [facility] Branch SARS-COV-2 COVID-19 2021-01-20 Completed Unive rsity of MODERNA VACCINE 00:00:00 [facility] SARS-COV-2 COVID-19 2021-01-20 Completed Unive rsity of MODERNA VACCINE 00:00:00 [facility] SARS-COV-2 COVID-19 2021-01-20 Completed Unive rsity of MODERNA VACCINE 00:00:00 [facility] Vital Signs Vital Name Observation Time Observation Value Comments Source Systolic blood 2022-03-13 16:10:00 161 mm[Hg] Univer sity of [facility] Diastolic blood 2022-03-13 16:10:00 106 mm[Hg] Unive rsity [facility] Heart rate 2022-03-13 16:10:00 72 /min [facility] Body height 2022-03-13 16:10:00 170.2 cm [facility] Body weight 2022-03-13 16:10:00 124.875 kg [facility] BMI 2022-03-13 16:10:00 43.12 kg/m2 [facility] Procedures This patient has no known procedures. Encounters Start End Encounter Admission Attending Care Care Encounter Source Date/Time Date/Time Type Type Clinicians Facility Department ID 2022-04-06 2022-04-06 [id number] Univers 00:00:00 00:00:00 [facility] [employer] [id number] it y of [place] [id number] [place] as CHRISTOPHER?BLEA [id number] Nd mitzygeorgina [address] MEDICAL OFFICE [facility] 2022-03-14 2022-03-14 [facility]phone [facility] [id number] Univers 00:00:00 00:00:00 [facility] [id number] it y of [place] [id number] [place] as CHRISTOPHER?BLEA [id number] Nd [address] MEDICAL OFFICE [facility] 2022-03-13 2022-03-13 Outpatient [facility] [id number] Univers 10:45:00 13:13:35 KELLE ramos [place] [facility] 2022-03-13 2022-03-13 Office [facility] [id number] Univers 10:45:00 11:15:00 Visit [facility] [employer] [id number] it y of [place] [id number] [place] as CHRISTOPHER?BLEA [id number] Nd dical [address] MEDICAL OFFICE BUILDING 2022-03-13 2022-03-13 Outpatient R [facility] [id number] Univers 10:45:00 10:45:00 KELLE ramos [facility] Results This patient has no known results.
[2022-12-14] MEDS ORDERED: IBUPROFEN 400 MG TAB ONE (15:22)
[2022-12-14] MEDS ORDERED: TRAMADOL HCL 50 MG TAB ONE (15:22)
--- NOTE | 2022-12-14 15:30 | ER ---
Nurse's Notes [facility] Name: Laci Dow Age: 52 yrs Sex: Male : 1970 Arrival Date: 12/14/2022 Time: 14:44 Bed IW2 Private MD: Greg Coronado E Diagnosis: Pain in left knee;Pain in left lower leg Presentation: 12/14 15:05 Chief complaint: Patient states: about 4 days ago, stepped out of truck and into a vg1 hole, stating "knee just twisted and I heard a little pop" Pt also stated swelling to Left knee. Coronavirus screen: Vaccine status: Patient reports receiving the 2nd dose of the covid vaccine. Ebola Screen: Patient negative for fever greater than or equal to 101.5 degrees Fahrenheit, and additional compatible Ebola Virus Disease symptoms. Risk Assessment: Do you want to hurt yourself or someone else? Patient reports no desire to harm self or others. Onset of symptoms was December 10, 2022. 15:05 Method Of Arrival: Ambulatory vg1 15:05 Acuity: FARRAH 4 vg1 15:08 Initial Sepsis Screen: Does the patient meet any 2 criteria? No. Patient's initial vg1 sepsis screen is negative. Does the patient have a suspected source of infection? No. Patient's initial sepsis screen is negative. Triage Assessment: 15:09 General: Appears in no apparent distress. uncomfortable, Behavior is calm, cooperative. vg1 Pain: Complains of pain in left knee and left cruz Pain currently is 7 out of 10 on a pain scale. Pain began x 4 days. Cardiovascular: Patient's skin is warm and dry. Musculoskeletal: Circulation, motion, and sensation intact. Reports pain in left knee and left cruz. Historical: - Allergies: 15:08 No Known Allergies; vg1 - PMHx: 15:08 Hypertension; vg1 - PSHx: 15:09 Neck; vg1 - Immunization history:: Client reports receiving the 2nd dose of the Covid vaccine. - Social history:: Smoking status: Patient denies any tobacco usage or history of. - Family history:: not pertinent. - Hospitalizations: : No recent hospitalization is reported. Screenin:46 [facility] ED Fall Risk Assessment (Adult) History of falling in the last 3 months, vg1 including since admission No falls in past 3 months (0 pts) Confusion or Disorientation No (0 pts) Intoxicated or Sedated No (0 pts) Impaired Gait No (0 pts) Mobility Assist Device Used No (0 pt) Altered Elimination No (0 pt) Score/Fall Risk Level 0 - 2 = Low Risk Oriented to surroundings, Maintained a safe environment, Educated pt \\T\\ family on fall prevention, incl call for assistance when getting out of bed, Assessed \\T\\ reinforced patient's understanding of fall precautions. Abuse screen: Denies threats or abuse. Nutritional screening: No deficits noted. Tuberculosis screening: No symptoms or risk factors identified. Vital Signs: 15:08 BP 157 / 116; Pulse 72; Resp 16; Temp 97.9(TE); Pulse Ox 98% on R/A; Weight 117.93 kg; vg1 Height 5 ft. 7 in. (170.18 cm); Pain 7/10; 15:46 BP 159 / 100; Pulse 78; Resp 16; Pulse Ox 99% on R/A; vg1 15:08 Body Mass Index 40.72 (117.93 kg, 170.18 cm) vg1 ED Course: 14:44 Patient arrived in ED. am2 14:44 Greg Coronado MD is Private Physician. am2 15:03 Andreas Sherman MD is Attending Physician. rn 15:08 Triage completed. vg1 15:09 Arm band placed on. vg1 15:29 Stan Hunt MD is Referral Physician. rn 15:46 Patient has correct armband on for positive identification. vg1 15:46 No provider procedures requiring assistance completed. Patient did not have IV access vg1 during this emergency room visit. Administered Medications: 15:22 Drug: traMADol 50 mg Route: PO; vg1 15:46 Follow up: Response: No adverse reaction vg1 15:22 Drug: Ibuprofen 800 mg Route: PO; vg1 15:46 Follow up: Response: No adverse reaction vg1 Medication: 15:47 VIS not applicable for this client. vg1 Outcome: 15:29 Discharge ordered by . rn 15:46 Discharged to home ambulatory, with family. vg1 15:46 Condition: good 15:46 Discharge instructions given to patient, Instructed on discharge instructions, follow up and referral plans. medication usage, Demonstrated understanding of instructions, follow-up care, medications, Prescriptions given X 2. 15:47 Patient left the ED. vg1 Signatures: Andreas Sherman MD MD rn Moreno, Amanda am2 Garcia, Victoria, RN RN vg1 Corrections: (The following items were deleted from the chart) 15:09 15:05 Coronavirus screen: Vaccine status: vg1 vg1
--- NOTE | 2022-12-14 15:30 | EDPHYS ---
Physician Documentation [facility] Name: Laci Dow Age: 52 yrs Sex: Male : 1970 Arrival Date: 12/14/2022 Time: 14:44 Bed IW2 Private MD: Greg Coronado E ED Physician Andreas Sherman HPI: 12/14 15:19 This 52 yrs old Black Male presents to ER via Ambulatory with complaints of Knee Injury rn - pain. 15:19 The patient presents with an injury, pain. The complaints affect the left calf and left rn knee. Onset: The symptoms/episode began/occurred 3 day(s) ago. Modifying factors: The symptoms are alleviated by elevating leg, remaining still, the symptoms are aggravated by movement, weight bearing. Severity of symptoms: At their worst the symptoms were moderate, in the emergency department the symptoms are unchanged. The patient has not experienced similar symptoms in the past. The patient has not recently seen a physician. Pt reports stepped off truck into hole 3 days ago, reports knee popped but really hurts behind left knee and calf regions. Hurts to walk but can walk. UNable to get into PCP yet, knows needs MRI. . Historical: - Allergies: 15:08 No Known Allergies; vg1 - PMHx: 15:08 Hypertension; vg1 - PSHx: 15:09 Neck; vg1 - Immunization history:: Client reports receiving the 2nd dose of the Covid vaccine. - Social history:: Smoking status: Patient denies any tobacco usage or history of. - Family history:: not pertinent. - Hospitalizations: : No recent hospitalization is reported. ROS: 15:19 Constitutional: Negative for fever, chills, and weight loss, MS/Extremity: + injury to rn LLE Skin: Negative for injury, rash, and discoloration, Neuro: Negative for headache, weakness, numbness, tingling, and seizure. Exam: 15:19 Constitutional: This is a well developed, well nourished patient who is awake, alert, rn and in no acute distress. Skin: Warm, dry with normal turgor. Normal color with no rashes, no lesions, and no evidence of cellulitis. MS/ Extremity: Pulses equal, no cyanosis. Neurovascular intact. NO knee effusion, no bony tenderness of knee or tib/fib of left leg. Mild swelling left calf region. No pitting edema. Vital Signs: 15:08 BP 157 / 116; Pulse 72; Resp 16; Temp 97.9(TE); Pulse Ox 98% on R/A; Weight 117.93 kg; vg1 Height 5 ft. 7 in. (170.18 cm); Pain 7/10; 15:46 BP 159 / 100; Pulse 78; Resp 16; Pulse Ox 99% on R/A; vg1 15:08 Body Mass Index 40.72 (117.93 kg, 170.18 cm) vg1 MDM: 15:03 Patient medically screened. rn 15:19 Differential diagnosis: closed fracture, contusion, tendonitis, tendon injury, muscle rn tear, DVT, sprain. Differential diagnosis: ligamentous injury. Data reviewed: vital signs, nurses notes. Test considered but Not performed: Other Details I recommended and offered xray and ultrasound, patient declines, states will f/u for MRI, thought we had an MRI available, which we dont.. Counseling: I had a detailed discussion with the patient and/or guardian regarding: the historical points, exam findings, and any diagnostic results supporting the discharge/admit diagnosis, the need for outpatient follow up, to return to the emergency department if symptoms worsen or persist or if there are any questions or concerns that arise at home. Special discussion: I discussed with the patient/guardian in detail that at this point there is no indication for admission to the hospital. It is understood, however, that if the symptoms persist or worsen the patient needs to return immediately for re-evaluation. Based on the history and exam findings, there is no indication for further emergent testing or inpatient evaluation. I discussed with the patient/guardian the need to see the orthopedic surgeon for further evaluation of the symptoms. I discussed with the patient/guardian the need to see the primary care provider for further evaluation of the symptoms. Administered Medications: 15:22 Drug: traMADol 50 mg Route: PO; vg1 15:46 Follow up: Response: No adverse reaction vg1 15:22 Drug: Ibuprofen 800 mg Route: PO; vg1 15:46 Follow up: Response: No adverse reaction vg1 Disposition Summary: 12/14/22 15:29 Discharge Ordered Location: Home rn Problem: new rn Symptoms: have improved rn Condition: Stable rn Diagnosis - Pain in left knee rn - Pain in left lower leg rn Followup: rn - With: Stan Hunt MD - When: As needed - Reason: Recheck today's complaints, Re-evaluation by your physician Discharge Instructions: - Discharge Summary Sheet rn - Elastic Bandage and RICE Therapy rn - Musculoskeletal Pain rn - Acute Knee Pain, Adult rn Forms: - Medication Reconciliation Form rn - Thank You Letter rn - Antibiotic programming internship - Prescription Opioid Use rn Prescriptions: - Ibuprofen 800 mg Oral Tablet - take 1 tablet by ORAL route every 12 hours As needed take with food; 20 tablet; rn Refills: 0, Product Selection Permitted - Tramadol 50 mg Oral Tablet - take 1 tablet by ORAL route every 8 hours as needed; 12 tablet; Refills: 0, rn Product Selection Permitted Signatures: Andreas Sherman MD MD rn Garcia, Victoria, RN RN vg1
[2022-12-14 16:00] VITALS: TEMP 97.9
[2022-12-14 16:01] VITALS: BP 159/100; O2SAT 99
== END 2022-12-14 15:47 | disposition home or self-care (01) ==
LOC: ER 14:41
DX: M25.562 Pain in left knee (principal); M79.662 Pain in left lower leg
CPT/HCPCS: 99283